=== PATIENT | female | born 1935 | race American Indian/Alaskan Native ===

== ENCOUNTER 2020-08-13 01:05 | Emergency (ER) | payer OTHER ==
[~2020-08-13] VITALS: Ht 152.4 cm; Wt 54.0 kg
[2020-08-13 01:05] VITALS: BP_SYST 195
[2020-08-13] MEDS ORDERED: ACETAMINOPHEN 500 MG TABLET PO ONE (01:45)
[2020-08-13] MEDS ORDERED: ACETAMINOPHEN 500 MG TABLET ONE (01:49)
[2020-08-13 03:21] VITALS: BP_SYST 186
== END 2020-08-13 03:21 | disposition home or self-care (01) ==
LOC: SED 01:05
DX: S00.03XA Contusion of scalp, initial encounter (principal); W01.0XXA Fall on same level from slipping, tripping and stumbling without subsequent striking against object, initial encounter; Y93.39 Activity, other involving climbing, rappelling and jumping off; Y92.89 Other specified places as the place of occurrence of the external cause; Y99.8 Other external cause status
CPT/HCPCS: 70450-TC; 72125-TC; 76376; 99285